=== PATIENT | male | born 1975 | race Caucasian/White ===

== ENCOUNTER 2023-04-20 01:20 | Inpatient (IN) | payer BC ==
[~2023-04-20] VITALS: Ht 175.3 cm; Wt 77.1 kg
--- NOTE | 2023-04-20 01:47 | NUR ---
BIBSELF FROM HOME C/O RUQ PAIN & ABD DISTENSION X2 DAYS. -N/V. PT AAOX4, AMBULATORY, PLACED IN BED, VITALS CHECKED.
--- NOTE | 2023-04-20 01:49 | NUR ---
DR RICHARDSON AT BEDSIDE, AWAITING ORDERS
--- NOTE | 2023-04-20 01:56 | NUR ---
URINE COLLECTED AND SENT TO LAB
[2023-04-20] MEDS ORDERED: MORPHINE SULFATE INJ 4 MG/ML DISP.SYRIN ONE ×2 (01:59→05:31)
[2023-04-20] MEDS ORDERED: IV NS 0.9% 1,000 ML BAG IV ONE ×2 (02:00→08:00)
[2023-04-20] MEDS ORDERED: MORPHINE SULFATE INJ 2 MG/ML DISP.SYRIN IV ONE ×2 (02:00→05:30)
--- NOTE | 2023-04-20 02:20 | NUR ---
RAC 20G ESTABLISHED, BLOOD AND BLOOD CULTURES COLLECTED AND SENT TO LAB
[2023-04-20 02:32] LABS: BASOPHILS % (AUTO) 0.5 % (0.0-2.0); EOSINOPHILS % (AUTO) 0.6 % (0.0-6.0); HEMATOCRIT 41 % (39-51); HEMOGLOBIN 13.5 g/dL (13.5-17.5); LYMPHOCYTES # (AUTO) 2.3 K/uL (0.8-4.8); LYMPHOCYTES % (AUTO) 25.8 % (20.0-44.0); MEAN CORPUSCULAR HGB CONC 33 g/dl (31.0-36.0); MEAN CORPUSCULAR VOLUME 94 fL (80-96); MONOCYTES % (AUTO) 11.4 % (2.0-12.0); NEUTROPHILS # (AUTO) 5.6 K/uL (1.8-8.9); NEUTROPHILS % (AUTO) 61.7 % (43.0-81.0); PLATELET COUNT (AUTO) 242 K/uL (150-450); RED BLOOD CELL COUNT(AUTO) 4.31 MIL/uL (4.5-6.0); WHITE BLOOD COUNT (AUTO) 9.1 K/uL (4.3-11.0)
[2023-04-20] MEDS ORDERED: CT SWABBABLE VALVE TRANS SET 1 EA INFUS.SET MC ONE (02:38)
[2023-04-20] MEDS ORDERED: IOHEXOL-300 100 ML VIAL IV ONE (02:38)
[2023-04-20] MEDS ORDERED: IV NS 0.9% 250 ML IV ONE (02:38)
[2023-04-20 02:42] LABS: CALCIUM, SERUM 9.2 mg/dL (8.5-10.1); CREATININE 1.1 mg/dL (0.6-1.3)
[2023-04-20 02:47] LABS: BILIRUBIN,URINE NEGATIVE (NEGATIVE); COLOR,URINE YELLOW (YELLOW); LEUKOCYTE ESTERASE ,URINE NEGATIVE (NEGATIVE); NITRITE, URINE NEGATIVE (NEGATIVE); PROTEIN,URINE 2+ mg/dl (NEGATIVE); UGLUCOSE NEGATIVE (NEGATIVE); UROBILINOGEN,URINE 0.2 EU/dL (0.2)
[2023-04-20 02:49] LABS: ALBUMIN 3.7 g/dL (3.4-5.0); BILIRUBIN,DIRECT 0.1 mg/dL (0.0-0.2); BILIRUBIN,TOTAL 0.4 mg/dL (0.2-1.0); TOTAL PROTEIN, SERUM 7.7 g/dL (6.4-8.2)
--- NOTE | 2023-04-20 02:50 | NUR ---
US TECH AT BEDSIDE
[2023-04-20 02:53] LABS: PH,URINE >9.0 (5.0-8.0)
[2023-04-20] MEDS ORDERED: POTASSIUM CHLORIDE 20 MEQ TAB.PRT.SR PO ONE ×2 (03:00→15:00)
--- NOTE | 2023-04-20 03:15 | NUR ---
PATIENT TAKEN TO CT VIA [facility]
[2023-04-20 03:19] LABS: RBC,URINE 0-2 /HPF (0-2); SQUAMOUS EPITHELIAL CELL,UR Moderate /HPF (None Seen); WBC,URINE 0-2 /HPF (0-3)
[2023-04-20 03:20] LABS: BACTERIA,URINE Rare /HPF (None Seen); URINE AMORPHOUS PHOSPHATES Many /HPF (None Seen)
--- NOTE | 2023-04-20 03:27 | NUR ---
[facility]
[2023-04-20] MEDS ORDERED: PIPERACILLIN /TAZOBACTAM 3.375 G in IV D5W 50 ML IV ONE (08:00)
[2023-04-20] MEDS ORDERED: HYDROMORPHONE INJ 2 MG/ML DISP.SYRIN IV ONE (08:00)
--- NOTE | 2023-04-20 08:03 | NUR ---
MOVE SHEET SUBMITTED.
[2023-04-20] MEDS ORDERED: PIPERACI/TAZO 3.375GM/D5W 50ML PB IV ONE (08:05)
[2023-04-20] MEDS ORDERED: HYDROMORPHONE 1 MG/1 ML DISP.SYRIN ONE (08:06)
--- NOTE | 2023-04-20 08:37 | NUR ---
CALLED DR. NUGENT [phone] GRANADO.
--- NOTE | 2023-04-20 08:48 | NUR ---
GOT BED 328-1 ADMITTING INFORMED.
--- NOTE | 2023-04-20 08:55 | NUR ---
REPORT GIVEN TO ALONDRA TERRAZAS. AWAITING TRANSFER TO FLOOR.
--- NOTE | 2023-04-20 09:20 | NUR ---
RN NOTE- PT ARRIVED FROM ED FOR CHOLECYSTITIS. BEGIN ADMISSION PROCESS
--- NOTE | 2023-04-20 09:21 | NUR ---
RN NOTE- 47 Y/O MALE BROUGHT HIMSELF TO ED FOR INCREASING RUQ ABDOMINAL PAIN X TWO DAYS. PT WITH MINIMAL MEDICAL HX. CT AND US RESULTED IN CHOLELITHIASIS. ADMIT FOR CHOLECYSTECTOMY. AOX4, INTERACTIVE, SUMMER, PAIN RELIEVED BY ANALGESICS ADMINISTERED IN ED. VS - BP-125/78, HR- 88, RR- 18, T- 97.5, O2 SATS 99% RA. ABDOMEN- DISTENDED, BS HYPOACTIVE, NO REBOUND TENDERNESS, NO ORGANOMEGALY, +GUARDING RUQ. IV - NS AT 75 TO 20G RAC, AMBULATORY, SKIN INTACT, CHEST CLEAR ALL LOBES. SURGICAL CONSENT FOR LAPARASCOPIC CHOLECYSTECTOMY IN AM. NPO AFTER MN , CLEARS UNTIL THEN. STABILIZE ELECTROLYTES, MONITOR/ ASSIST
[2023-04-20] MEDS ORDERED: LORAZEPAM INJ 2 MG/ML VIAL IV PRN (09:30)
[2023-04-20] MEDS ORDERED: Z GUARD REMEDY 4 OZ OINT TP PRN (09:30)
[2023-04-20] MEDS ORDERED: MAGNESIUM HYDROXIDE 30 ML UDC PO PRN (09:30)
[2023-04-20] MEDS ORDERED: ONDANSETRON HCL/PF 4 MG/2 ML VIAL IVP PRN (09:30)
[2023-04-20] MEDS: IV NS 0.9% 1,000 ML IV PRN (09:45)
[2023-04-20] MEDS ORDERED: PRAM0.129 PO (09:49)
[2023-04-20] MEDS ORDERED: PARO40TA4 PO (09:49)
[2023-04-20] MEDS ORDERED: PANT40TA49 PO (09:49)
[2023-04-20] MEDS ORDERED: ACYC-108 PO (09:49)
[2023-04-20] MEDS ORDERED: EMTR1TAB17 PO (09:49)
[2023-04-20] MEDS ORDERED: DOLU50TA PO (09:49)
[2023-04-20] MEDS ORDERED: LOSA1TAB39 PO (09:49)
[2023-04-20] MEDS ORDERED: Magnesium 1GM/D5W 100ML PREMIX PIGGYBACK IV ONE (10:00)
[2023-04-20] MEDS ORDERED: ENOXAPARIN SODIUM 40 MG/0.4 ML DISP.SYRIN SQ SCH (10:00)
[2023-04-20 10:10] VITALS: BP 125/75; TEMP 97.5
--- NOTE | 2023-04-20 10:15 | NUR ---
I WITNESSED WASTING 1 MG DILAUDID OUT OF 2 MG. -CHERI TREVIÑO RN
[2023-04-20] MEDS: HYDROMORPHONE INJ 2 MG/ML DISP.SYRIN IV PRN ×3 (10:16→20:39)
[2023-04-20] MEDS: PANTOPRAZOLE 40 MG VIAL IV SCH (10:22)
[2023-04-20] MEDS: Thiamine 100 MG in IV D5W 50 ML IV SCH (10:47)
[2023-04-20] MEDS: POTASSIUM CL. PREMIX PERIPHER. 50 ML IV SCH ×2 (12:06→13:29)
[2023-04-20] MEDS: PIPERACILLIN /TAZOBACTAM 3.375 G in IV D5W 50 ML IV SCH ×2 (14:51→20:47)
--- NOTE | 2023-04-20 15:45 | NUR ---
MEDICATION NOTE- CONTROLLED MEDICATION I WITNESS RN ALONDRA, WASTE 1MG DILAUDID (Fanny HUTSON, ADMITTING SUPERVISOR)
--- NOTE | 2023-04-20 19:20 | NUR ---
MS RN OPENING NOTE PT IS RESTING IN BED. HE IS ALERT AND ORIENTED, AO X 4. PT IS ON RA, TOLERATED WELL. NO S/S OF DISTRESS OR SOB. IV ACCESS IS AT HIS R AC, #20G; INFUSING NS@ 75 ML/HR. IV SITE IS PATENT AND INTACT. PT DENIES OF HAVING PAIN AT THIS MOMENT. HE IS ABLE TO MAKE HIS NEEDS KNOWN. SAFETY MEASURES ARE IN PLACED: BED IN LOWEST AND LOCKED POSITION; SIDE RAILS UP X 2; CALL LIGHT AND TABLE ARE WITHIN REACH. WILL CONTINUE MONITORING THE PT AND PROVIDE THE CARE PT NEEDS.
--- NOTE | 2023-04-20 19:28 | NUR ---
RN CLOSING NOTE- PT IN BED AOX4, IVF NS INFUSING AT 75/HR, NEEDS ATTENDED. CLEAR LIQUIDS UNTIL NPO AFTER MN. CONSENTS DONE FOR LAP KAROLINE AT 0500. MONITOR/ ASSIST
[2023-04-20 20:00] VITALS: BP 151/94; TEMP 98.2
--- NOTE | 2023-04-20 20:48 | NUR ---
MS RN WITNESS NOTE WITNESSED NINI HEATH WASTED THE REMAINING PARTIAL DOSE OF DILAUDID (1MG).
--- NOTE | 2023-04-20 20:50 | NUR ---
MS RN NOTE PT STATED THAT HE WAS HAVING SEVERE PAIN AT HIS ABD, 05/27. PRN IV MEDICATION, DILAUDID 1 MG, ADMINISTERED TO THE PT PER MD ORDER.
--- NOTE | 2023-04-20 20:52 | NUR ---
MS RN NOTE DILAUDID 2 MG TAKEN FROM OMNICELL, 1 MG GIVEN AND WASTED 1 MG WITNESSED BY ALON PICKARD RN.
--- NOTE | 2023-04-21 01:21 | NUR ---
MS RN NOTE I WITNESSED WASTING 1 MG DILAUDID OUT OF 2 MG. - LORETTA JOHNSON RN
--- NOTE | 2023-04-21 01:22 | NUR ---
MS RN NOTE DILAUDID 2 MG TAKEN FROM OMNICELL, 1 MG GIVEN AND WASTED 1 MG WITNESSED BY LORETTA JOHNSON RN.
[2023-04-21] MEDS: IV NS 0.9% 1,000 ML IV PRN ×2 (01:32→10:00)
[2023-04-21] MEDS: HYDROMORPHONE INJ 2 MG/ML DISP.SYRIN IV PRN ×4 (01:37→23:06)
[2023-04-21] MEDS: PIPERACILLIN /TAZOBACTAM 3.375 G in IV D5W 50 ML IV SCH ×3 (04:20→21:04)
--- NOTE | 2023-04-21 04:32 | NUR ---
MS RN NOTE PT LEFT THE UNIT ON A HOSPITAL BED TO OR; ACCOMPANY BY HAND SALTER. CHARGE NURSE, DORCAS SHAH. PT'S BELONGINGS ARE IN 4 PLASTIC BAGS IN ROOM 328-2 ON THE BEDSIDE TABLE.
[2023-04-21] MEDS ORDERED: LIDOCAINE 1% INJ 50 ML MDV IJ ONE (04:47)
[2023-04-21] MEDS ORDERED: BUPIVACAINE MPF W/EPI 0.25% 30 ML VIAL ONE (04:47)
[2023-04-21] MEDS ORDERED: FENTANYL PF 100MCG/2ML AMPUL ONE (05:16)
[2023-04-21] MEDS ORDERED: ROCURONIUM BROMIDE 50 MG/5 ML ONE (05:17)
[2023-04-21] MEDS ORDERED: MIDAZOLAM HCL 2 MG/2ML VIAL ONE (05:17)
[2023-04-21] MEDS ORDERED: KETAMINE HCL (500MG/10ML) 50 MG/ML VIAL ONE (05:17)
[2023-04-21] MEDS ORDERED: CELLULOSE,OXIDIZED 1 EA PACK MC ONE (07:14)
--- NOTE | 2023-04-21 07:25 | NUR ---
MS RN OPENING NOTE Patient not in the unit. Patient in OR.
--- NOTE | 2023-04-21 07:28 | NUR ---
MS RN CLOSING NOTE PT IS STILL IN OR NOT COMING BACK YET. CHANGE SHIFT REPORT GIVEN TO NINI MCCRARY TO CONTINUE PT CARE ONCE PT IS BACK. PT'S BELONGINGS ARE IN HIS ROOM ON THE BEDSIDE TABLE. ENDORSED NINI MCCRARY. PT'S FRIEND, KEVIN, CALLED AND LEFT HIS PHONE NUMBER; ENDORSED DEMETRA TERRAZAS TO CALL KEVIN ONCE PT IS BACK TO THE UNIT.
[2023-04-21] MEDS ORDERED: HYDROMORPHONE INJ 2 MG/ML DISP.SYRIN ONE (07:34)
[2023-04-21] MEDS ORDERED: ONDANSETRON HCL/PF 4 MG/2 ML VIAL IVP PRN (08:30)
--- NOTE | 2023-04-21 09:20 | NUR ---
RN NOTE Patient went back to the unit via hospital bed, awake, s/p lap cholecystectomy. A/O x 4, no c/o pain/discomfort at this time. On O2 via nc at 3lpm, saturating well. With dry and intact dressing in the abdomen. IV access in RAC #18g running LR wide open. Safety measures maintained: bed in lowest locked position, side rails up x 2, side rails and tray table within easy reach. Will continue to monitor.
[2023-04-21] MEDS: PANTOPRAZOLE 40 MG VIAL IV SCH (10:01)
[2023-04-21 11:25] LABS: BASOPHILS % (AUTO) 0.1 % (0.0-2.0); EOSINOPHILS % (AUTO) 0.1 % (0.0-6.0); HEMATOCRIT 37 % (39-51); HEMOGLOBIN 12.4 g/dL (13.5-17.5); LYMPHOCYTES # (AUTO) 0.7 K/uL (0.8-4.8); LYMPHOCYTES % (AUTO) 7.3 % (20.0-44.0); MEAN CORPUSCULAR HGB CONC 34 g/dl (31.0-36.0); MEAN CORPUSCULAR VOLUME 96 fL (80-96); MONOCYTES # (AUTO) 0.4 K/uL (0.1-1.30); MONOCYTES % (AUTO) 4.3 % (2.0-12.0); NEUTROPHILS # (AUTO) 8.3 K/uL (1.8-8.9); NEUTROPHILS % (AUTO) 88.2 % (43.0-81.0); PLATELET COUNT (AUTO) 180 K/uL (150-450); RED BLOOD CELL COUNT(AUTO) 3.82 MIL/uL (4.5-6.0); WHITE BLOOD COUNT (AUTO) 9.4 K/uL (4.3-11.0)
[2023-04-21] MEDS: Thiamine 100 MG in IV D5W 50 ML IV SCH (11:26)
[2023-04-21 11:37] LABS: CREATININE 1.1 mg/dL (0.6-1.3); MAGNESIUM 2.3 mg/dL (1.8-2.4); PHOSPHORUS 2.7 mg/dL (2.5-4.9); POTASSIUM 4.1 mmol/L (3.5-5.1)
[2023-04-21 11:52] LABS: THYROID STIMULATING HORMONE 0.304 uIU/mL (0.358-3.74)
--- NOTE | 2023-04-21 14:00 | NUR ---
RN NOTE Patient verbalized he has difficulty urinating, warm compress to bladder done. Bladder scan shows 750ml retention.
[2023-04-21] MEDS ORDERED: HOME MED MISCELLANEOUS XX SCH ×2 (14:30)
--- NOTE | 2023-04-21 15:00 | NUR ---
RN NOTES I WITNESSED WASTING DILAUDID INJ 1MG /0.5ML FORM NINI MCCRARY
--- NOTE | 2023-04-21 15:00 | NUR ---
RN NOTE Patient verbalized pain in the surgical site with the scale of 8/10, Dilaudid inj 1mg/0.5ml prn given at 1457. Will continue to monitor.
--- NOTE | 2023-04-21 15:01 | NUR ---
RN NOTE Dilaudid inj 1mg/0.5ml given to patient. 1mg/0.5ml wasted and witnessed by RN Arlin.
--- NOTE | 2023-04-21 16:00 | NUR ---
RN NOTE Patient was able to urinate. Bladder scan done, urine retained is 350. Will continue to monitor. MD made aware.
[2023-04-21] MEDS: ACYCLOVIR 800 MG TABLET PO SCH (16:23)
[2023-04-21] MEDS: PAROXETINE HCL 20 MG TABLET PO SCH (16:23)
[2023-04-21] MEDS: LOSARTAN/HCTZ 50-12.5MG/ 1 EA TABLET PO SCH (17:32)
--- NOTE | 2023-04-21 18:51 | NUR ---
MS RN NOTE Patient resting in bed. A/O x 4, c/o pain in the surgical site, prn med given. On room air, saturating well. With dry and intact dressing in the abdomen. IV access in RAC #18g, sl. Needs attended. Safety measures maintained: bed in lowest locked position, side rails up x 2, side rails and tray table within easy reach. Will endorse justina to night baker. Addendum: 04/21/23 at 1904 by Anjana Robison RN Error, please disregard
--- NOTE | 2023-04-21 19:01 | NUR ---
RN NOTE Patient verbalized pain in the surgical site with the scale of 8/10, Dilaudid inj 1mg/0.5ml prn given at 1856. Will continue to monitor.
--- NOTE | 2023-04-21 19:01 | NUR ---
RN NOTE I WITNESSED WASTING 1MG OF DILAUDID OUT OF 2MG.
--- NOTE | 2023-04-21 19:02 | NUR ---
RN NOTE Dilaudid inj 1mg/0.5ml given to patient. 1mg/0.5ml wasted and witnessed by RN Ascencion.
--- NOTE | 2023-04-21 19:04 | NUR ---
MS RN CLOSING NOTE Patient resting in bed. A/O x 4, c/o pain in the surgical site, prn med given. On room air, saturating well. With dry and intact dressing in the abdomen. IV access in RAC #18g, sl. Needs attended. Safety measures maintained: bed in lowest locked position, side rails up x 2, side rails and tray table within easy reach. Will endorse justina to slot shift manager.
--- NOTE | 2023-04-21 19:40 | NUR ---
MS RN OPENING NOTES RECEIVED PATIENT IN BED, AWAKE AND ALERT. [facility] BEDSIDE. A/O X 4. ON ROOM AIR, BREATHING EVEN AND UNLABORED, NO DISTRESS NOTED AT THIS TIME. IV ACCESS RAC #20G, FLUSHING WELL. PATIENT IS S/P LAP KAROLINE AND ON CLEAR LIQUIDS. PATIENT IS AMBULARY WITH BRP. SAFETY MEASURES IN PLACE WITH BED IN LOWEST LOCKED POSITION. SIDE RAILS UP. TRAY AND CALL LGITH WITHIN EASY REACH. WILL CONTINUE TO MONITOR THE PATIENT FOR CONTINUITY OF CARE.
[2023-04-21 20:20] VITALS: BP 113/69; TEMP 97.6
--- NOTE | 2023-04-21 23:15 | NUR ---
MS RN NOTE WITNESSED NURSE SANDOR WASTE 1MG OF DILAUDID.
--- NOTE | 2023-04-21 23:17 | NUR ---
RN NOTES- DILAUDID 1MG IV GIVEN PRN PATIENT C/O OF ABDOMINAL PAIN WITH PAIN LEVEL 8/10. DILAUDID 1MG TAKEN FROM OMNICELL, 1MG GIVEN AND WASTED 1MG WITNESSED BY NINI CRYSTAL.
[2023-04-22] MEDS: HYDROMORPHONE INJ 2 MG/ML DISP.SYRIN IV PRN ×2 (03:17→09:12)
--- NOTE | 2023-04-22 03:17 | NUR ---
RN NOTES- DILAUDID 1MG IV GIVEN PRN PATIENT C/O OF ABDOMINAL PAIN WITH PAIN LEVEL 8/10. DILAUDID 1MG TAKEN FROM OMNICELL, 1MG GIVEN AND WASTED 1MG WITNESSED BY RN MIKA BENITEZ.
--- NOTE | 2023-04-22 03:37 | NUR ---
RN NOTES JOSEFA BRANTLEY- DILAUDID 2 MG TAKEN FROM THE OMNICALL 1MG GIVEN AND WASTED 1 MG WITNESSED BY SANDOR BRISENO.
[2023-04-22] MEDS: PIPERACILLIN /TAZOBACTAM 3.375 G in IV D5W 50 ML IV SCH ×2 (04:19→13:00)
[2023-04-22 07:00] VITALS: BP 141/94; TEMP 99.2
--- NOTE | 2023-04-22 07:40 | NUR ---
MS RN CLOSING NOTES PATIENT IN BED, AWAKE AND ALERT. [facility] BEDSIDE. A/O X 4. ON ROOM AIR, BREATHING EVEN AND UNLABORED, NO DISTRESS NOTED AT THIS TIME. IV ACCESS RAC #20G, FLUSHING WELL. PATIENT IS S/P LAP KAROLINE AND ON CLEAR LIQUIDS. PATIENT IS AMBULATORY WITH BRP. SAFETY MEASURES MAINTAINED DURING SHIFT. WILL ENDORSE TO THE NEXT SHIFT.
--- NOTE | 2023-04-22 08:22 | NUR ---
MS RN OPENING NOTE (DAY SHIFT) PATIENT IN BED, AWAKE AND ALERT. UP OOB TO BATHROOM AND VOIDED ON TOILET. BLADDER SCAN PVR = 179 mLs. A/O X 4. ON ROOM AIR, BREATHING EVEN AND UNLABORED, NO DISTRESS NOTED AT THIS TIME. IV ACCESS RAC #20G, FLUSHING WELL. PATIENT IS S/P LAP KAROLINE WITH FOUR CLEAN, DRY, INTACT BAND-AID TYPE BANDAGES TO HIS ABDOMEN. TOLERATING DRINKING CLEAR LIQUIDS. SAFETY MEASURES MAINTAINED DURING SHIFT. WILL CONTINUE TO CARE FOR PATIENT AND MONITOR PER HOSPITALIST'S POC.
[2023-04-22] MEDS ORDERED: THIAMINE HCL 100 MG TABLET PO SCH (09:00)
[2023-04-22] MEDS ORDERED: PANTOPRAZOLE 40 MG/PACK PACK PO SCH (09:00)
[2023-04-22 09:11] VITALS: BP 141/94
[2023-04-22] MEDS: PAROXETINE HCL 20 MG TABLET PO SCH (09:11)
[2023-04-22] MEDS: LOSARTAN/HCTZ 50-12.5MG/ 1 EA TABLET PO SCH (09:11)
[2023-04-22] MEDS: ACYCLOVIR 800 MG TABLET PO SCH (10:37)
[2023-04-22] MEDS ORDERED: ZOLP5TAB2 PO (12:39)
[2023-04-22] MEDS ORDERED: HYDR-3972 PO (12:39)
[2023-04-22] MEDS ORDERED: AMOX-430 PO (12:39)
--- NOTE | 2023-04-22 13:19 | NUR ---
MS PEARLER TO HOME NOTE Patient tolerated well the removal of the PIV catheter fully intact from his right arm antecubital space without any signs of complications of IV therapy. Patient demonstrated understanding of his home care discharge instructions by using the teach back method in his own words. Patient departed on foot with steady gait from the [facility] at 13:18 hours to private car bound for his home.
[2023-04-22] MEDS ORDERED: PRAMIPEXOLE DI-HCL 0.25 MG TABLET PO SCH (22:00)
== END 2023-04-22 13:48 | disposition home or self-care (01) | DRG 419 ==
LOC: ER 01:26 → MED 09:00
PROVIDERS: ADMIT Nurse Practitioner Acute Care; ATTEND Nurse Practitioner Acute Care
PROC: 0FT44ZZ Resection of Gallbladder, Percutaneous Endoscopic Approach (ICD-10-PCS; principal; 2023-04-20)
PROC: 0FB14ZX Excision of Right Lobe Liver, Percutaneous Endoscopic Approach, Diagnostic (ICD-10-PCS; 2023-04-20)
PROC: 0DBU4ZX Excision of Omentum, Percutaneous Endoscopic Approach, Diagnostic (ICD-10-PCS; 2023-04-20)
DX: K80.12 Calculus of gallbladder with acute and chronic cholecystitis without obstruction (principal); E87.6 Hypokalemia; I10 Essential (primary) hypertension; Y90.9 Presence of alcohol in blood, level not specified; F14.90 Cocaine use, unspecified, uncomplicated; F10.20 Alcohol dependence, uncomplicated; R74.01 Elevation of levels of liver transaminase levels; K66.0 Peritoneal adhesions (postprocedural) (postinfection); K76.0 Fatty (change of) liver, not elsewhere classified; K76.9 Liver disease, unspecified; K66.8 Other specified disorders of peritoneum
CPT/HCPCS: 36415; 76705-TC; 80048-TC; 80061-TC; 80076-TC; 81001; 83605-TC; 83690-TC; 83735-TC; 84100-TC; 84443-TC; 85025-TC; 85730-TC; 86850-TC; 87040-TC; 87081-TC; 93307-TC; A4223; A6209; C9113; G0378; J1100; J1170; J1650; J2250; J2270; J2405; J2543; J2704; J2765; J3010; J3411; J3475; J3480; J3490; J7030; J7050; J7060; Q9967